=== PATIENT | female | born 1940 | race Caucasian/White ===

== ENCOUNTER 2020-09-03 17:44 | Observation (INO) | payer MEDICARE ==
[~2020-09-03] VITALS: Ht 162.6 cm; Wt 67.5 kg
[2020-09-03] MEDS ORDERED: ONDANSETRON 2MG/ML, 2ML ONE (18:28)
[2020-09-03] MEDS ORDERED: NITROGLYCERIN OINT 2%, 1GM TP ONE ×2 (18:28→18:30)
[2020-09-03] MEDS ORDERED: MORPHINE SULFATE 4 MG/ML, 1ML ONE ×2 (18:28→20:16)
[2020-09-03] MEDS ORDERED: ONDANSETRON 2MG/ML, 2ML IVPush ONE (18:30)
[2020-09-03] MEDS ORDERED: PLEASE ENTER ALLERGIES MC SCH (18:30)
[2020-09-03] MEDS ORDERED: SODIUM CHLORIDE 0.9% 1,000 ML IV ONE (18:30)
[2020-09-03] MEDS ORDERED: SODIUM CHLORIDE FLUSH 10ML SYR IVF ONE (18:30)
[2020-09-03] MEDS: MORPHINE SULFATE 4 MG/ML, 1ML IVPush PRN ×2 (18:33→20:18)
[2020-09-03 18:41] LABS: ALANINE AMINOTRANSFERASE 19 U/L (12-78); ALBUMIN 3.2 g/dL (3.4-5.0); ANION GAP 6 mmol/L (5-15); CALCIUM 8.5 mg/dL (8.5-10.1); CHLORIDE 102 mmol/L (98-107); CREATININE 0.76 mg/dL (0.55-1.02)
[2020-09-03 18:51] LABS: BASOPHILS % (AUTO) 0 % (0-1); EOSINOPHILS % (AUTO) 1 % (1-7); LYMPHOCYTES % (AUTO) 8 % (22-44); MEAN CORPUSCULAR HEMOGLOBIN 31.9 pg (27.0-34.8); MEAN CORPUSCULAR HGB CONC 33.2 g/dL (32.4-35.8); MEAN PLATELET VOLUME 7.6 fL (7.4-10.4); MONOCYTES % (AUTO) 11 % (2-9); NEUTROPHILS % (AUTO) 79 % (42-75); PLATELET COUNT 290 x10^3/uL (130-400); RED BLOOD COUNT 3.78 x10^6/uL (3.82-5.3)
[2020-09-03 18:52] LABS: ALKALINE PHOSPHATASE 68 U/L (45-117); BILIRUBIN,TOTAL 0.3 mg/dL (0.2-1.0); MD NO; T4 (THYROXINE) 8.6 mcg/dL (4.8-13.9); TROPONIN I < 0.015 ng/mL (0.000-0.045)
--- NOTE | 2020-09-03 19:05 | NUR ---
PT TRANSPORTED TO CT.
[2020-09-03] MEDS ORDERED: ONDANSETRON ODT 4 MG PO PRN (20:30)
[2020-09-03] MEDS ORDERED: morphine SULFATE 10 MG/ML, 1ML IVPush PRN (20:30)
[2020-09-03] MEDS ORDERED: BISACODYL 10 MG SUPP PR PRN (20:30)
[2020-09-03] MEDS ORDERED: NITROGLYCERIN 0.4 MG BOTTLE (25 TABS) SL PRN (20:30)
[2020-09-03] MEDS ORDERED: ACETAMINOPHEN 325 MG TABLET PO PRN (20:30)
[2020-09-03] MEDS ORDERED: MORPHINE SULFATE 4 MG/ML, 1ML IVPush PRN (20:30)
[2020-09-03] MEDS ORDERED: POLYETHYLENE GLYCOL 17 GM PACKET PO PRN (20:30)
[2020-09-03] MEDS: SODIUM CHLORIDE FLUSH 10ML SYR IVF SCH (21:00)
--- NOTE | 2020-09-03 21:58 | NUR ---
PT RESTING, NAD. VSS. PT REPORTS SHE FEELS "SO MUCH BETTER" DENIES CP AT THIS TIME.
--- NOTE | 2020-09-03 23:01 | NUR ---
REPORT TO DEWAYNE WHATLEY.
[2020-09-04 00:42] LABS: TROPONIN I < 0.015 ng/mL (0.000-0.045)
[2020-09-04 00:53] VITALS: BP 94/57
[2020-09-04] MEDS ORDERED: METO25TA35 PO (01:13)
[2020-09-04 01:25] VITALS: BP 96/56
[2020-09-04] MEDS ORDERED: SIMV20TA19 PO (01:27)
[2020-09-04] MEDS ORDERED: FURO20TA3 PO (01:27)
[2020-09-04] MEDS ORDERED: LOSA100T14 PO (01:28)
[2020-09-04] MEDS ORDERED: ASPIRIN 81 MG TABLET EC PO SCH (06:00)
[2020-09-04 06:45] LABS: CHOL/HDL RATIO 2.5; CHOLESTEROL, TOTAL 103 mg/dL (140-239); HDL CHOL % 41 % (28-40); HDL CHOLESTEROL (DIRECT) 42 mg/dL (40-60); LDL CHOLESTEROL,CALCULATED 50 mg/dL (54-169); LDL/HDL RATIO 1.2 (0.5-3.0); TRIGLYCERIDES 54 mg/dL (50-200); TROPONIN I < 0.015 ng/mL (0.000-0.045); VLDL CHOLESTEROL 11 mg/dL (0-25)
[2020-09-04 07:18] VITALS: BP 97/58
[2020-09-04] MEDS ORDERED: REGADENOSON 0.4 MG/5 ML SYRINGE ONE (07:50)
[2020-09-04] MEDS ORDERED: SENNA/DOCUSATE TABLET PO SCH (09:00)
[2020-09-04] MEDS: SODIUM CHLORIDE FLUSH 10ML SYR IVF SCH (10:42)
[2020-09-04 12:35] VITALS: BP 110/65
[2020-09-04] MEDS ORDERED: METH500T7 PO (14:31)
== END 2020-09-04 17:06 | disposition home or self-care (01) ==
LOC: ED 20:03 → EDIP 21:32 → INTOOBSV 21:32 → 5SO 09-04 00:10
PROVIDERS: ADMIT Family Medicine; ATTEND Family Medicine
DX: R07.89 Other chest pain (principal); J98.11 Atelectasis; K76.89 Other specified diseases of liver; K21.9 Gastro-esophageal reflux disease without esophagitis; K44.9 Diaphragmatic hernia without obstruction or gangrene; I10 Essential (primary) hypertension; I38 Endocarditis, valve unspecified; Z79.899 Other long term (current) drug therapy; Z87.891 Personal history of nicotine dependence; Z90.710 Acquired absence of both cervix and uterus
CPT/HCPCS: 36415; 71045; 71275; 74174; 78452; 80053; 80061; 83735; 83880; 84436; 84443; 84484; 85025; 93005; 93017; 96361; 96374; 96375; 96376; 99285; A9502; G0378; J2270; J2405; J2785; J7030